=== PATIENT | female | born 1975 | race African-American/Black ===

== ENCOUNTER 2023-06-15 19:50 | Emergency (ER) | payer SELFPAY ==
[~2023-06-15] VITALS: Ht 167.6 cm; Wt 68.0 kg
[2023-06-15] MEDS ORDERED: ACETAMINOPHEN ES 500 MG TABLET ONE (21:24)
[2023-06-15] MEDS ORDERED: ACETAMINOPHEN ES 500 MG TABLET PO ONE (21:30)
[2023-06-15] MEDS ORDERED: IBUPROFEN 600 MG TABLET ONE (22:21)
[2023-06-15 22:27] VITALS: BP 131/71; TEMP 98.2; O2SAT 98
[2023-06-15] MEDS ORDERED: IBUPROFEN 600 MG TABLET PO ONE (22:30)
== END 2023-06-15 22:27 | disposition home or self-care (01) ==
LOC: ER 19:52
DX: S09.8XXA Other specified injuries of head, initial encounter (principal); M25.532 Pain in left wrist; V49.3XXA Car occupant (driver) (passenger) injured in unspecified nontraffic accident, initial encounter; Y93.89 Activity, other specified; Y92.89 Other specified places as the place of occurrence of the external cause; Y99.8 Other external cause status
CPT/HCPCS: 70450-TC; 71045-TC; 73110; 73564-TC